=== PATIENT | female | born 1975 | race Hispanic/Latino ===

== ENCOUNTER 2021-11-18 04:11 | Emergency (ER) | payer MEDICAID ==
--- NOTE | 2021-11-18 06:07 | XRay Report ---
XR ankle 3+V LT INDICATION / CLINICAL INFORMATION: INJURY COMPARISON: None available. AP, LATERAL, AND OBLIQUE VIEWS LEFT ANKLE FINDINGS: No fracture, dislocation, or significant soft tissue abnormality. IMPRESSION: 1. No significant abnormality of the left ankle. Signer Name: Vance Bustos II, MD Signed: 11/18/2021 6:03 AM Workstation Name: [id number]
[2021-11-18] MEDS ORDERED: oxyCODONE /ACETAMINOPHEN 5-325MG TAB PO ONE (08:19)
[2021-11-18] MEDS ORDERED: KETOROLAC 10 MG TAB PO ONE (08:19)
--- NOTE | 2021-11-18 09:04 | XRay Report ---
LEFT FOOT 3 VIEWS INDICATION / CLINICAL INFORMATION: fall, pain and swelling. COMPARISON: None available. FINDINGS: BONES / JOINT(S): No acute fracture or subluxation. Mild calcaneal spurring. SOFT TISSUES: No significant abnormality. ADDITIONAL FINDINGS: None. Signer Name: Long Allan MD Signed: 11/18/2021 9:00 AM Workstation Name: [id number]
--- NOTE | 2021-11-18 09:40 | Emergency Department Report ---
ED Lower Extremity HPI - General Chief Complaint: Extremity Injury, Lower Stated Complaint: FOOT INJURY Time Seen by Provider: 11/18/21 08:18 Source: patient Mode of arrival: Ambulatory Limitations: No Limitations - History of Present Illness Initial Comments: 46-year-old white female with a past medical history of sarcoma presents to the emergency department for evaluation of left foot and ankle pain. She states that she twisted her foot and fell last night and twisted her ankle also. She states that she has had persistent pain and swelling to the area along with some discoloration to her foot since then. She states that pain is 8 on a 10 point scale. MD Complaint: ankle injury, foot injury -: Sudden, Last night Injury: Ankle: Left, Foot: Left Place: street/outdoors Severity scale (0 -10): 8 Worsens With: weight bearing Context: fall Associated Symptoms: swelling, able to partially bear weight. denies: snap/pop sensation, numbness, tingling, unable to bear weight - Related Data Previous Rx's Medication Instructions Recorded Last Taken Type HYDROcodone/APAP 5-325 [[place] 1 each PO Q6HR PRN #15 tablet 03/30/13 Unknown Rx 5/325 mg] Naproxen Sodium (Nf) [Anaprox DS] 550 mg PO BID PRN #14 tablet 03/30/13 Unknown Rx Albuterol Mdi (or & Nicu Only) 2 puff IH QID PRN #1 inhalation 02/04/16 Unknown Rx [Proair] Amoxicillin/K Clav Tab [Augmentin 1 tab PO Q12HR #20 tab 02/04/16 Unknown Rx 875 mg] Fluticasone [Flonase] 1 spray NS QDAY #1 bottle 02/04/16 Unknown Rx predniSONE [Deltasone] 50 mg PO QDAY #5 tab 02/04/16 Unknown Rx Ketorolac [Toradol] 10 mg PO Q6H PRN #12 tab 11/18/21 Unknown Rx Allergies Allergy/AdvReac Type Severity Reaction Status Date / Time No Known Allergies Allergy Verified 11/18/21 08:23 ED Review of Systems ROS: Stated complaint: FOOT INJURY Other details as noted in HPI Comment: All other systems reviewed and negative Respiratory: denies: shortness of breath Cardiovascular: denies: chest pain, palpitations Gastrointestinal: denies: abdominal pain, nausea, vomiting Musculoskeletal: denies: back pain Neurological: denies: headache, weakness ED Past Medical Hx - Past Medical History Previous Medical History?: No - Surgical History Past Surgical History?: No Additional Surgical History: 3 C-Sections - Social History Smoking Status: Never Smoker Substance Use Type: None - Medications Home Medications: Home Medications Medication Instructions Recorded Confirmed Last Taken Type HYDROcodone/APAP 5-325 [[place] 1 each PO Q6HR PRN #15 tablet 03/30/13 Unknown Rx 5/325 mg] Naproxen Sodium (Nf) [Anaprox DS] 550 mg PO BID PRN #14 tablet 03/30/13 Unknown Rx Albuterol Mdi (or & Nicu Only) 2 puff IH QID PRN #1 inhalation 02/04/16 Unknown Rx [Proair] Amoxicillin/K Clav Tab [Augmentin 1 tab PO Q12HR #20 tab 02/04/16 Unknown Rx 875 mg] Fluticasone [Flonase] 1 spray NS QDAY #1 bottle 02/04/16 Unknown Rx predniSONE [Deltasone] 50 mg PO QDAY #5 tab 02/04/16 Unknown Rx Ketorolac [Toradol] 10 mg PO Q6H PRN #12 tab 11/18/21 Unknown Rx ED Physical Exam - General Limitations: No Limitations General appearance: alert, in no apparent distress - Head Head exam: Present: atraumatic, normocephalic - Eye Eye exam: Present: normal appearance. Absent: conjunctival injection - Neck Neck exam: Present: normal inspection - Respiratory Respiratory exam: Absent: respiratory distress - Cardiovascular Cardiovascular Exam: Present: normal rhythm - GI/Abdominal GI/Abdominal exam: Absent: distended, tenderness - Extremities Exam Extremities exam: Present: normal capillary refill. Absent: pedal edema, joint swelling, calf tenderness - Expanded Lower Extremity Exam Right Lower Leg exam: Present: normal inspection Ankle exam: Present: tenderness, swelling. Absent: full ROM, abrasion, l aceration, ecchymosis, deformity, crepidus, dislocation, erythema Foot/Toe exam: Present: tenderness, swelling, ecchymosis. Absent: full ROM, abrasion, laceration, deformity, crepidus, dislocation, erythema, amputation, calcaneal tenderness, tenderness at base of 5th metatarsal, nail avulsion, subungual hematoma Neuro vascular tendon exam: Present: no vascular compromise. Absent: abnormal cap refill, motor deficit, sensory deficit, extremity cold to touch, pallor, foot drop Gait: Positive: observed and limited by pain - Back Exam Back exam: Present: normal inspection - Neurological Exam Neurological exam: Present: alert, oriented X3 - Psychiatric Psychiatric exam: Present: normal affect, normal mood - Skin Skin exam: Present: warm, dry, intact, normal color ED Lower Extremity MDM - Radiology Data Radiology results: report reviewed, image reviewed Left ankle x-ray: FINDINGS: No fracture, dislocation, or significant soft tissue abnormality. IMPRESSION: 1. No significant abnormality of the left ankle. X-ray left foot FINDINGS: BONES / JOINT(S): No acute fracture or subluxation. Mild calcaneal spurring. SOFT TISSUES: No significant abnormality. ADDITIONAL FINDINGS: None. - Medical Decision Making 46-year-old white female with a past medical history of sarcoma presents to the emergency department for evaluation of left foot and ankle pain. She states that she twisted her foot and fell last night and twisted her ankle also. She states that she has had persistent pain and swelling to the area along with some discoloration to her foot since then. She states that pain is 8 on a 10 point scale. Left ankle and foot x-ray without any acute abnormalities noted. Patient be placed in [place] wrap and discharged home with Toradol and advised to follow-up with orthopedics if no improvement or worsening symptoms. She is advised to return to the emergency department as needed. She verbalizes understanding of and agreement with plan of care. Critical care attestation.: If time is entered above; I have spent that time in minutes in the direct care of this critically ill patient, excluding procedure time. ED Disposition Clinical Impression: Left foot pain, Contusion of left foot Disposition: HOME / SELF CARE / HOMELESS Is pt being admited?: No Does the pt Need Aspirin: No Condition: Stable Instructions: Contusion, [id number], How to Use Cold Therapy, [id number], Foot Contusion, [id number] Additional Instructions: Take medications as prescribed. Follow-up with your primary care provider or orthopedics if no improvement or worsening symptoms. Return to the emergency department as needed. Prescriptions: Ketorolac [Toradol] 10 mg PO Q6H PRN #12 tab PRN Reason: Pain Referrals: GIANCARLO MUNGUIA MD [Staff Physician] - 3-5 Days Forms: Work/School Release Form(ED) Time of Disposition: 09:52
[2021-11-18 10:00] VITALS: BP 137/64
== END 2021-11-18 10:19 | disposition home or self-care (01) ==
LOC: ED 04:11
DX: S90.32XA Contusion of left foot, initial encounter (principal); Z98.890 Other specified postprocedural states; Z79.899 Other long term (current) drug therapy; X50.1XXA Overexertion from prolonged static or awkward postures, initial encounter; Y93.89 Activity, other specified; Y92.89 Other specified places as the place of occurrence of the external cause; Y99.8 Other external cause status
CPT/HCPCS: 99283